=== PATIENT | female | born 1950 | race African-American/Black ===

== ENCOUNTER → 2017-02-21 | Outpatient (CLI) | payer MEDICARE, BC ==
[~2017-02-21] MED LIST: ALBUTEROL17 GM INH; ALENDRONATE SOD70 MG; ANASTROZOLE PO; ARIMIDEX1 MG PO; ASPIRIN ENTERI325 M1 PO; ASPIRIN81 M1; ASPIRIN81 M2 PO; BENAZEPRIL HCL40 MG; BYSTOLIC10 MG PO; CELEXA PO; CITALOPRAM HBR40 MG; CITALOPRAM HBR40 MG PO; DIFLUCAN100 MG; GLUCOPHAGE500 M1 PO; HYDROCHLOROTHIA25 MG PO; HYDROCODON-ACE1 EAC1; LIPITOR20 MG PO; LORTAB 10-5001 EACH PO; LORTAB 7.5-5001 TAB PO; LOTENSIN40 MG PO; MIRTAZAPINE30 MG PO; MOBIC PO; PANTOPRAZOLE SO40 MG PO; PLAVIX PO; PLETAL100 M1 PO; PROAIR HFA8.5 GM; PROTONIX PO; RECLAST 55 MG/100 M INJ; SIMVASTATIN40 MG PO; SINGULAIR PO; TOPROL XL 50 MG50 MG; TOPROL XL50 MG PO; TRAMADOL HCL50 M1; TRAMADOL HCL50 M2 PO; VYTORIN 10-20 M1 TAB PO; ZYRTEC
--- NOTE | ~2017-02-21 | CR229 ---
[facility] A Service of [facility] & [facility] RADIOLOGY TEXT RESULTS PATIENT: MICHEAL JACOBSON LOCATION: [facility] : 51 UNIT #: [id number] AGE: [address]: Umu Comer MD SEX: F ORDER DR: [id number] [facility] [address] [place], [place] [address] [id number] O MR#: [id number] Acc #: [id number] NAME: MICHEAL JACOBSON : 1950 SEX: F STUDY DATE/TIME: 02/21/2017 UNIT: [facility] ROOM: STUDY DESCRIPTION: CR Shoulder Min 2 View Lt Attending Physician: Umu Comer M.D. Referring Physician: Umu Comer M.D. Ordering Physician: Umu Comer M.D. Primary Care Physician: Shira Parkinson M.D. MEDICAL IMAGING REPORT This report is preliminary unless electronic signature is present EXAM Left shoulder 02/21 at 14:07 INDICATIONS Pain and limited range of motion for the last 2-3 months. Prior history of shoulder fracture. FINDINGS 3 views of the left shoulder compared with 02/27/2013. No acute fracture or dislocation is seen. There is no AC joint separation. There is an old proximal humerus fracture. IMPRESSION Old healed proximal humerus fracture. Shoulder is otherwise negative. Dictated by... Bowen Herrera Jr., M.D. THIS IS AN ELECTRONICALLY VERIFIED REPORT Bowen Herrera Jr., M.D. at 02/24/2017 8:01 AM RLK/stephan TD: 02/21/2017 17:05 JOB #: [id number] MEDICAL IMAGING REPORT Page 1 of 1 COPY
== END | disposition home or self-care (01) ==
LOC: CRAD 13:52
DX: M25.512 Pain in left shoulder (principal); Z87.81 Personal history of (healed) traumatic fracture
CPT/HCPCS: 73030

== ENCOUNTER → 2017-03-02 | Outpatient (CLI) | payer MEDICARE, BC ==
--- NOTE | ~2017-03-02 | CT57 ---
[facility] A Service of [facility] & [facility] RADIOLOGY TEXT RESULTS PATIENT: MICHEAL JACOBSON LOCATION: [facility] : 51 UNIT #: [id number] AGE: [address]: Shira Parkinson MD SEX: F ORDER DR: [id number] [facility] [address] [place], [place] [address] [id number] O MR#: [id number] Acc #: [id number] NAME: MICHEAL JACOBSON : 1950 SEX: F STUDY DATE/TIME: 03/02/2017 UNIT: [facility] ROOM: STUDY DESCRIPTION: CT Chest Wo Cont Attending Physician: Shira Parkinson M.D. Referring Physician: Shira Parkinson M.D. Ordering Physician: Shira Parkinson M.D. Primary Care Physician: Shira Parkinson M.D. MEDICAL IMAGING REPORT This report is preliminary unless electronic signature is present EXAM CT chest without contrast 03/02/2017 1413 hours HISTORY 66-year-old woman with prior history of breast carcinoma 2011 for followup of right upper lobe lung nodule found on lung cancer screening CT, 08/28/2016. The patient remains asymptomatic. COMPARISON Chest CT 08/28/2016 TECHNIQUE Helical low-dose noncontrasted CT images were obtained from the lung apices through the adrenal glands. Sagittal and coronal reconstructions were performed. Total exam DLP 117 mGy-cm. This CT exam was performed with one or more of the following radiation dose reduction techniques: automatic exposure control, adjustment of mA and/or kV according to patient size, and iterative reconstruction. FINDINGS Images through the thoracic inlet demonstrate no discrete thyroid mass or adenopathy. Images through the chest demonstrate coarse coronary calcifications. Aorta is normal in caliber. There is no pathologic adenopathy. There is underlying emphysematous change with small blebs at the apices. Previous right upper lobe nodule is now replaced by an area of the thin linear scar. There is a partially calcified nodule more superiorly in the left upper lobe on image 27 that is unchanged. There is mild subpleural interstitial thickening, right lung greater than left, unchanged. There is mild lower lobe cylindrical bronchiectasis unchanged. No acute STS. [facility] A Service of [facility] & [facility] RADIOLOGY TEXT RESULTS PATIENT: MICHEAL JACOBSON LOCATION: [facility] : 51 UNIT #: [id number] AGE: [address]: Shira Parkinson MD SEX: F ORDER DR: findings in the upper abdomen. Stable cysts in the liver. IMPRESSION 1. Benign chest CT. Previous 5-mm right upper lobe nodule has resolved. There is a small area of linear scar. This was likely infectious or inflammatory. 2. There is underlying emphysematous change, mild subpleural interstitial thickening in the upper lobes and mild cylindrical bronchiectasis in the lower lobes, unchanged. 3. Coarse coronary calcifications. Lung-RADS category II, benign exam. Followup low-dose CT in 12 months is recommended. Dictated by... Kim Salcedo M.D. THIS IS AN ELECTRONICALLY VERIFIED REPORT Kim Salcedo M.D. at 03/04/2017 2:31 PM Izaiah TD: 03/03/2017 14:41 JOB #: [id number] MEDICAL IMAGING REPORT Page 1 of 1 COPY
== END | disposition home or self-care (01) ==
LOC: CCAT 13:35
DX: R91.1 Solitary pulmonary nodule (principal); I25.10 Atherosclerotic heart disease of native coronary artery without angina pectoris
CPT/HCPCS: 71250

== ENCOUNTER → 2017-03-03 | Outpatient (CLI) | payer MEDICARE, BC ==
--- NOTE | ~2017-03-03 | CR20 ---
[facility] A Service of [facility] & [facility] RADIOLOGY TEXT RESULTS PATIENT: MICHEAL JACOBSON LOCATION: [facility] : 51 UNIT #: [id number] AGE: [address]: Umu Comer MD SEX: F ORDER DR: [id number] [facility] [address] [place], [place] [address] [id number] O MR#: [id number] Acc #: [id number] NAME: MICHEAL JACOBSON. : 1950 SEX: F STUDY DATE/TIME: 03/03/2017 12:28 UNIT: [facility] ROOM: STUDY DESCRIPTION: CR Ankle Min 3 Views Lt Attending Physician: Umu Comer M.D. Referring Physician: Umu Comer M.D. Ordering Physician: Umu Comer M.D. Primary Care Physician: Shira Parkinson M.D. MEDICAL IMAGING REPORT This report is preliminary unless electronic signature is present EXAM Left ankle, 3 views, 03/03/2017 HISTORY Left ankle pain since November 2016, no known injury. FINDINGS AP, lateral, and oblique projections of the ankle show satisfactory integrity of the joint mortise with a smooth articular surface. There is no identifiable fracture, dislocation, or radiopaque foreign body. IMPRESSION Normal ankle. Dictated by... Herson Davis M.D. THIS IS AN ELECTRONICALLY VERIFIED REPORT Herson Davis M.D. at 03/04/2017 2:12 PM KRT/craig TD: 03/03/2017 20:11 JOB #: [id number] MEDICAL IMAGING REPORT Page 1 of 1 COPY
== END | disposition home or self-care (01) ==
LOC: CRAD 12:16
DX: M19.072 Primary osteoarthritis, left ankle and foot (principal)
CPT/HCPCS: 73610

== ENCOUNTER → 2017-03-04 | Outpatient (CLI) | payer MEDICARE, BC ==
--- NOTE | ~2017-03-04 | MY11 ---
[facility] A Service of [facility] & [facility] RADIOLOGY TEXT RESULTS PATIENT: MICHEAL JACOBSON LOCATION: [facility] : 51 UNIT #: [id number] AGE: [address]: Bryant Coelho MD SEX: F ORDER DR: [id number] [facility] [address] [place], [place] [address] [id number] O MR#: [id number] Acc #: [id number] NAME: MICHEAL JACOBSON. : 1950 SEX: F STUDY DATE/TIME: 03/04/2017 10:46 UNIT: [facility] ROOM: STUDY DESCRIPTION: MY Mammogram Screening Dig Mariano Attending Physician: Bryant Coelho M.D. Ordering Physician: Bryant Coelho M.D. Primary Care Physician: Shira Parkinson M.D. MEDICAL IMAGING REPORT This report is preliminary unless electronic signature is present EXAM Bilateral digital screening mammogram with CAD 03/04/2017 INDICATIONS 66-year-old female with a history of breast cancer on the right in 2010 status post chemotherapy and radiation therapy. No family history of breast cancer. No current problems. TECHNIQUE CC and MLO views of the breasts were obtained and reviewed with FDA-approved CAD device COMPARISON 02/08/2016 01/30/2015 09/06/2013 FINDINGS Breast parenchyma is composed of scattered fibroglandular densities. The right breast is smaller than the left. Scar markers are present on the right along with architectural distortion indicative of prior surgery in the right breast and right axilla. On the CC projection of the right breast, there is a subtle nodular asymmetry measuring 5 mm just lateral to the operative bed. This is favored to represent an area of summation artifact as there is no corresponding abnormality on the true lateral view. This does however represent a change from prior imaging studies and further evaluation with spot compression, rolled views and a true lateral view is recommended. If the abnormality persists on additional mammographic views targeted ultrasound would be recommended for further assessment. There is otherwise no new dominant nodule mass or suspicious clustered microcalcifications. Benign calcifications are present. IMPRESSION 1. There is a 5 mm nodular asymmetry in the CC view of the right breast lateral to the operative bed. This probably represents a summation STS. [facility] A Service of [facility] RADIOLOGY TEXT RESULTS PATIENT: MICHEAL JACOBSON LOCATION: [facility] : 51 UNIT #: [id number] AGE: [address]: Bryant Coelho MD SEX: F ORDER DR: artifact but should be further assessed with additional mammographic views and potentially a breast ultrasound. Patients over the age of 40 are entered into a reminder system with target due date for the next mammogram. A result letter will also be sent to the patient. BIRADS: 0. Incomplete; Need additional imaging evaluation and/or prior mammograms for comparison. Dictated by... Rafat Duke M.D. THIS IS AN ELECTRONICALLY VERIFIED REPORT Rafat Duke M.D. at 03/05/2017 5:35 PM BRIANNE/geneva TD: 03/04/2017 14:07 JOB #: [id number] MEDICAL IMAGING REPORT Page 1 of 1 COPY
== END | disposition home or self-care (01) ==
LOC: CWCC 10:27
DX: Z12.31 Encounter for screening mammogram for malignant neoplasm of breast (principal); N63 Unspecified lump in breast; Z85.3 Personal history of malignant neoplasm of breast; Z98.890 Other specified postprocedural states
CPT/HCPCS: G0202

== ENCOUNTER → 2017-03-16 | Outpatient (CLI) | payer MEDICARE, BC ==
--- NOTE | ~2017-03-16 | MR164 ---
[facility] A Service of [facility] & [facility] RADIOLOGY TEXT RESULTS PATIENT: MICHEAL JACOBSON LOCATION: [facility] : 51 UNIT #: [id number] AGE: [address]: Umu Comer MD SEX: F ORDER DR: [id number] [facility] [address] [place], [place] [address] [id number] O MR#: [id number] Acc #: [id number] NAME: MICHEAL JACOBSON. : 1950 SEX: F STUDY DATE/TIME: 03/16/2017 17:22 UNIT: [facility] ROOM: STUDY DESCRIPTION: MR Shoulder Wo Contrast Lt Attending Physician: Umu Comer M.D. Referring Physician: Umu Comer M.D. Ordering Physician: Umu Comer M.D. Primary Care Physician: Shira Parkinson M.D. MRI CENTER REPORT This report is preliminary unless electronic signature is present. EXAM MRI of the left shoulder without contrast HISTORY 66-year-old female fell and fractured left shoulder 3 years ago. No recent trauma but began having pain in November with pain and decreased range of motion. COMPARISON Left shoulder films, 02/21/2017 FINDINGS Multiplanar multiecho imaging was performed of the left shoulder utilizing a high field magnet and dedicated protocol. Examination demonstrates deformity of the proximal humerus related to an old healed fracture of the proximal humerus with significant impaction of the fracture with the humeral head rotated medially and over 2.0 cm of impaction of the surgical neck relative to the humeral head articular surface. Again the fracture appears healed. No active marrow edema. Joint fluid within normal limits. Mild AC joint arthropathy with a small amount of periarticular edema. Mild supraspinatus tendinopathy and some adjacent bursal inflammation but no evidence of full-thickness tear. The infraspinatus, teres minor tendons appear intact. The subscapularis tendon appears intact. The superior labrum demonstrates some mild degeneration. The biceps anchor appears intact. The long tendon of the biceps is not well demonstrated within the proximal shoulder as there is loss of the normal appearance of the bicipital groove. The more distal biceps tendon appears intact. The anterior and posterior labrum unremarkable. Extraarticular soft tissues appear normal. IMPRESSION 1. Deformity of the proximal humerus compatible with an old healed STS. [facility] A Service of [facility] & [facility] RADIOLOGY TEXT RESULTS PATIENT: MICHEAL JACOBSON LOCATION: [facility] : 51 UNIT #: [id number] AGE: [address]: Umu Comer MD SEX: F ORDER DR: impacted fracture of proximal humerus with well over 2.0 cm of impaction and some medial rotation of the humeral head. No deformity of the humeral head articular surface. 2. Mild supraspinatus tendinopathy with associated subacromial-subdeltoid bursal inflammation. 3. Mild AC joint arthropathy. Dictated by... Rossy Monroy M.D. THIS IS AN ELECTRONICALLY VERIFIED REPORT Rossy Monroy M.D. at 03/17/2017 3:32 PM POLY/alejandra TD: 03/17/2017 10:27 JOB #: [id number] MRI CENTER REPORT Page 1 of 1 COPY
== END | disposition home or self-care (01) ==
LOC: CMRI 16:50
DX: M75.82 Other shoulder lesions, left shoulder (principal); M19.012 Primary osteoarthritis, left shoulder; M75.52 Bursitis of left shoulder; M21.922 Unspecified acquired deformity of left upper arm
CPT/HCPCS: 73221

== ENCOUNTER → 2017-03-17 | Outpatient (CLI) | payer MEDICARE, BC ==
--- NOTE | ~2017-03-17 | MY8 ---
[facility] A Service of [facility] & [facility] RADIOLOGY TEXT RESULTS PATIENT: MICHEAL JACOBSON LOCATION: [facility] : 51 UNIT #: [id number] AGE: [address]: Shira Parkinson MD SEX: F ORDER DR: [id number] [place] [id number] [place], [place] [address] [id number] O MR#: [id number] Acc #: [id number] NAME: MICHEAL JACOBSON. : 1950 SEX: F STUDY DATE/TIME: 03/17/2017 15:23 UNIT: [facility] ROOM: STUDY DESCRIPTION: MY Mammogram Dx Dig Rt Attending Physician: Shira Parkinson M.D. Ordering Physician: Shira Parkinson M.D. Primary Care Physician: Shira Parkinson M.D. MEDICAL IMAGING REPORT This report is preliminary unless electronic signature is present EXAM Right breast digital diagnostic mammogram with CAD DATE 03/17/2017 HISTORY Focal asymmetry in the right breast on previous screening mammogram for which additional diagnostic imaging was recommended. Previous history of right breast cancer in 2010 with radiation therapy and chemotherapy. FINDINGS True ML views obtained of the right breast utilizing digital technique and reviewed with an FDA-approved CAD device. Linear marker placed over the right breast denoting surgical scars. The previously described focal 5 mm nodular asymmetry within the lateral hemisphere right breast CC view is not apparent on today's true ML view, nor is it apparent on the rolled lateral and rolled medial views. Additionally, CC view with spot compression in the lateral hemisphere demonstrates no focal or suspicious nodular density. There is a rounded area of dystrophic calcification within the operative bed which has a benign appearance and is unchanged from prior studies. Scattered fibroglandular densities are present within the right breast. IMPRESSION 1. Benign findings in the right breast. The nodular asymmetry on previous screening mammogram is consistent with benign summation artifact, and there is no mammographic evidence of recurrent malignancy on today's study. The patient is advised to continue monthly self-breast examination and annual physician physical examination. Patient is advised to return for routine bilateral screening mammogram in 1 year. The findings were discussed with the patient today in the radiology department. [facility] A Service of [facility] & [facility] RADIOLOGY TEXT RESULTS PATIENT: MICHEAL JACOBSON LOCATION: [facility] : 51 UNIT #: [id number] AGE: [address]: Shira Parkinson MD SEX: F ORDER DR: Patient's over the age of 40 are entered into a reminder system with target due date for the next mammogram. BIRADS: 2 Benign findings Dictated by... Brit Stauffer M.D. THIS IS AN ELECTRONICALLY VERIFIED REPORT Brit Stauffer M.D. at 03/18/2017 9:41 AM HAILEY/andrae TD: 03/17/2017 16:22 JOB #: [id number] MEDICAL IMAGING REPORT Page 1 of 1 COPY
== END | disposition home or self-care (01) ==
LOC: CMAM 14:57
DX: R92.8 Other abnormal and inconclusive findings on diagnostic imaging of breast (principal)
CPT/HCPCS: G0206

== ENCOUNTER → 2017-03-31 | Day surgery (SDC) | payer MEDICARE, BC ==
--- NOTE | ~2017-03-31 | OR ---
Unit #: [id number] #: [id number] Patient: MICHEAL JACOBSON [id number] [address] [id number] O MR#: [id number] NAME: MICHEAL JACOBSON. ROOM: Date of Procedure: 03/31/2017 Admission Date: 03/31/2017 Surgeon: Ney Boateng M.D. : 1950 Attending Physician: Ney Boateng M.D. Primary Care Physician: Shira Parkinson M.D. PROCEDURE OPERATIVE NOTE PROCEDURE Colonoscopy with polypectomy. INDICATIONS Patient with history of colon polyps in the past, undergoing colonoscopy for evaluation. MEDICATION Monitored anesthesia. POSTOP FINDINGS Two polyps in the rectosigmoid area appear hyperplastic, black, 5 to 6 cm, snared and sent to pathology. PLAN Repeat colonoscopy in five years. DESCRIPTION OF PROCEDURE The patient was explained the procedure risks and benefits along with the risks and benefits of anesthesia. He was brought to the endoscopy room. Propofol anesthesia was given. Rectal exam was done which was normal. Colonoscope was lubricated and passed up the rectum, advanced under direct vision all the way to the cecum. The cecum was identified by the ileocecal valve and appendiceal orifice. At this point, I started to pull the scope out, carefully looking. Two polyps as described above. I retroflexed in the rectum, small hemorrhoids. The scope then gently was pulled out. She tolerated it well. No immediate complications. Dictated by... Malika Cowart/mara TD: 03/31/2017 11:23 JOB #: [id number] Unit #: [id number] #: [id number] Patient: MICHEAL JACOBSON PROCEDURE OPERATIVE NOTE Page 1 of 1 X Ney Boateng MD X PROCEDURE OPERATIVE NOTE
== END | disposition home or self-care (01) ==
LOC: COPS 07:23
DX: Z12.11 Encounter for screening for malignant neoplasm of colon (principal); K63.5 Polyp of colon; K64.9 Unspecified hemorrhoids; I25.2 Old myocardial infarction; E11.9 Type 2 diabetes mellitus without complications; I10 Essential (primary) hypertension; E78.5 Hyperlipidemia, unspecified; J45.909 Unspecified asthma, uncomplicated; M19.90 Unspecified osteoarthritis, unspecified site; F17.210 Nicotine dependence, cigarettes, uncomplicated; Z86.010 Personal history of colon polyps; Z87.19 Personal history of other diseases of the digestive system; Z86.79 Personal history of other diseases of the circulatory system; Z79.82 Long term (current) use of aspirin; Z79.84 Long term (current) use of oral hypoglycemic drugs; Z79.899 Other long term (current) drug therapy; Z79.1 Long term (current) use of non-steroidal anti-inflammatories (NSAID); Z95.5 Presence of coronary angioplasty implant and graft; Z98.890 Other specified postprocedural states
CPT/HCPCS: 82947; 88305

== ENCOUNTER → 2017-05-26 | Outpatient (CLI) | payer MEDICARE, BC ==
--- NOTE | ~2017-05-26 | BD1 ---
[facility] A Service of [facility] & [facility] RADIOLOGY TEXT RESULTS PATIENT: MICHEAL JACOBSON LOCATION: [facility] : 51 UNIT #: [id number] AGE: [address]: Shira Parkinson MD SEX: F ORDER DR: [id number] [facility] [address] [place], [place] [address] [id number] O MR#: [id number] Acc #: [id number] NAME: MICHEAL JACOBSON. : 1950 SEX: F STUDY DATE/TIME: 05/26/2017 10:37 UNIT: [facility] ROOM: STUDY DESCRIPTION: BD Dexa Bone Dens 1+ Site Attending Physician: Shira Parkinson M.D. Ordering Physician: Shira Parkinson M.D. Primary Care Physician: Shira Parkinson M.D. MEDICAL IMAGING REPORT This report is preliminary unless electronic signature is present EXAM DEXA bone scan, 05/26/2017 HISTORY Status post menopause with history of hormone replacement therapy. Osteopenia. Breast carcinoma, radiation therapy and chemotherapy. Arthritis and diabetes. Hypertension with blood pressure medication for 10 years. Fracture of shoulder and pelvis in last 10 years. Smoking history for 50 years. Family history of osteoporosis in mother. FINDINGS Bone mineral density in the lumbar spine from L1-L4 is 0.769 g/cm2 which is 3.5 standard deviations below the mean when compared to young adult reference population which is characteristic of osteoporosis. This is 1.4 standard deviations below the mean when compared to the age-matched population. Compared with 01/26/2014, there has been a decrease in bone mineral density in the lumbar spine of 5.9%. Bone mineral density in the left femoral neck was 0.607 g/cm2 which is 2.4 standard deviations below the mean when compared to the young adult reference population which is characteristic of osteopenia. This is 1.1 standard deviations below the mean when compared to the age-matched population. Compared 01/26/2014, there has been a decrease in bone mineral density in the left hip of 1.4%. IMPRESSION Bone mineral density in the lumbar spine characteristic of osteoporosis and within the left hip characteristic of osteopenia. Compared with 01/26/2014, there has been a decrease in bone mineral density in the lumbar spine and the left hip. Dictated by... Herson Davis M.D. [facility] A Service of [facility] RADIOLOGY TEXT RESULTS PATIENT: MICHEAL JACOBSON LOCATION: [facility] : 51 UNIT #: [id number] AGE: [address]: Shira Parkinson MD SEX: F ORDER DR: THIS IS AN ELECTRONICALLY VERIFIED REPORT Herson Davis M.D. at 05/27/2017 2:17 PM RAMON/jazzmine TD: 05/26/2017 21:09 JOB #: [id number] MEDICAL IMAGING REPORT Page 1 of 1 COPY
== END | disposition home or self-care (01) ==
LOC: CWCC 10:00
DX: M81.0 Age-related osteoporosis without current pathological fracture (principal); M85.88 Other specified disorders of bone density and structure, other site
CPT/HCPCS: 77080

== ENCOUNTER → 2017-06-01 | Outpatient (CLI) | payer MEDICARE, BC | END | disposition home or self-care (01) | LOC: CSSDAY 08:00 | DX: M81.0 Age-related osteoporosis without current pathological fracture (principal) | CPT/HCPCS: 96365; J3489 ==